=== PATIENT | female | born 1970 | race Caucasian/White ===

== ENCOUNTER 2020-02-08 12:04 | Day surgery (SDC) | payer OTHER ==
[~2020-02-08] VITALS: Ht 175.3 cm; Wt 86.2 kg
[~2020-02-08 12:04] MED LIST: CIPROFLOXACIN500 MG PO; CYCLAFEM1 EAC1 PO; DILAUDID2 MG PO; ERYTHROMYCIN250 M1 PO; FLUOXETINE HCL20 M1 PO; IBUPROFEN800 MG PO; ORTHO NOVUM PO; PAROXETINE HCL20 MG PO; PERCOCET 5-3251 EACH PO; SPIRONOLACTONE25 MG PO
[2020-02-08] MEDS ORDERED: FAMOTIDINE20 MG PO (12:20)
--- NOTE | 2020-02-08 14:10 | NUR ---
02/08/20 1410 Eleanor Ruvalcaba 1404-PATIENT ARRIVED TO PACU ON 2L NC. PATIENT DROWSY DENIES PAIN OR NAUSEA. LAYING LEFT LATERAL. ABDOMEN SOFT. IVF INFUSING. ENCOURAGED TO PASS GAS
--- NOTE | 2020-02-09 11:23 | OR ---
[facility] [address] [place], [place] [address] Signed DATE OF OPERATION: 02/08/2020 SURGEON: Roque Pham MD PREOPERATIVE DIAGNOSES: 1. Colon screening. 2. Family history of colon cancer in paternal grandfather. POSTOPERATIVE DIAGNOSIS: Normal colon. PROCEDURE: Total colonoscopy to right colon with visualization of cecum. ANESTHESIA: Intravenous sedation, fentanyl 100 mcg and Versed 9 mg. INDICATION: This 49-year-old white woman is a patient of DENNY Streeter. She is symptom free as regard to bleeding, diarrhea, or constipation. She is here for screening colonoscopy. She does describe a family history of colon cancer in a paternal grandfather. She understands the risks of bleeding, infection, and perforation related to colonoscopy and wished to proceed. FINDINGS: The prep was good. Complete colonoscopy was undertaken; however, despite every effort, the cecum itself could not be fully intubated. It was visualized, however. There were no signs of polyps, diverticular formation, colitis, or cancer. DESCRIPTION OF PROCEDURE: The patient was brought to the endoscopy suite and placed in lateral decubitus position, given intravenous sedation to the point of slurred speech and nystagmus. Digital rectal examination was normal. An Olympus video colonoscope was passed in the rectum and manipulated throughout the colon. Passage beyond the hepatic flexure was too much problem, passage down the right colon was undertaken requiring abdominal wall stabilization and so forth. Ultimately, the cecum could be visualized. A biopsy forceps was used to stabilize the mucosa hoping to do a " " with the scope. It was simply could not be done despite every effort to do so. The cecum was visualized and considered normal. Scope was withdrawn Electronically Signed By: ROQUE PHAM MD 02/09/20 1123 PATIENT NAME: VLAD BLAKE OPERATIVE REPORT DATE OF : 68 REPORT #: [id number] PHYSICIAN: ROQUE PHAM MD PCP: ROSELINE MENDOZA PA-C REPORT IS CONFIDENTIAL AND NOT TO BE RELEASED WITHOUT AUTHORIZATION [facility] [address] [place] [id number] Signed from that point and examination throughout showed no sign of polyps, diverticular formation, colitis, or cancer. The scope was removed, and the patient was taken to the recovery room in good condition. CONCLUSION DIAGNOSIS: Normal colon. PLAN: Recommend repeat colonoscopy in 5 years considering family history of colon cancer, or sooner if she has symptoms of course. She will return to the ongoing care of Roseline Mendoza. MD GRIS Lomeli/SUSU /[id number] cc: Roseline Mendoza PA-C Copies: ROSELINE MENDOZA PA-C ~ Electronically Signed By: ROQUE PHAM MD 02/09/20 1123 PATIENT NAME: VLAD BLAKE OPERATIVE REPORT DATE OF : 68 REPORT #: [id number] PHYSICIAN: ROQUE PHAM MD PCP: ROSELINE MENDOZA PA-C REPORT IS CONFIDENTIAL AND NOT TO BE RELEASED WITHOUT AUTHORIZATION
== END 2020-02-08 14:55 | disposition home or self-care (01) ==
LOC: OPS 12:04 → DS 12:09 → OPS 13:00
PROVIDERS: Surgery
PROC: 0DJD8ZZ Inspection of Lower Intestinal Tract, Via Natural or Artificial Opening Endoscopic (ICD-10-PCS; principal; 2020-02-08 13:00)
DX: Z12.11 Encounter for screening for malignant neoplasm of colon (principal); Z80.0 Family history of malignant neoplasm of digestive organs
CPT/HCPCS: 99153; G0500; J2250; J3010; J7121

== ENCOUNTER 2020-08-08 08:05 | Day surgery (SDC) | payer OTHER ==
[~2020-08-08] VITALS: Ht 175.3 cm; Wt 88.6 kg
[~2020-08-08 08:05] MED LIST changes: +COD LIVER OIL1 EAC2 PO; +FAMOTIDINE20 MG PO; +ICAPS AREDS2 S1 EACH PO
--- NOTE | 2020-08-08 12:46 | NUR ---
08/08/20 1246 Hiram Heredia MD AT BEDSIDE. AWARE OF BLOOD TINGED DRAINAGE FROM RIGHT NECK SURGICAL SITE. NO NEW ORDERS.
--- NOTE | 2020-08-08 14:19 | NUR ---
PT TAKING SIPS OF WATER AND EATING JELLO. REVIEWING DISCHARGE INSTRUCTIONS WITH PT AND AT BEDSIDE.
--- NOTE | 2020-08-08 15:15 | NUR ---
1450 PT UP TO BATHROOM WITH AND RN HELPING PT. PT REPORTS SMALL AMOUNT OF DIZZINESS. PT REPORTS VOIDING. 1515 ALL QUESTIONS ANSWERED AND VSS. IV REMOVED AND ALL BELONGINGS GIVEN. PAPERWORK GIVEN.
--- NOTE | 2020-08-22 10:03 | OR ---
[facility] [address] [place], [place] [address] Signed DATE OF OPERATION: 08/08/2020 SURGEON: Eze Umana MD PREOPERATIVE DIAGNOSIS: [place] syndrome. POSTOPERATIVE DIAGNOSIS: [place] syndrome. PROCEDURE: Partial hyoidectomy bilaterally with resection or release of stylohyoid ligament. INDICATIONS: This is a 50-year-old female has had symptoms of pain, especially worse with turning her head, talking, swallowing, and point tenderness right at the insertion of the hyoid. CT scan was done, which did not show stylohyoid ligament calcification, length of styloid process was within normal limits. The patient did have sharp pieces of calcifications, which went faintly up into the neck. With the patient failing medical treatment, she did get better for a while with anti-inflammatories only to resume. With the point tenderness and CT scan, the above procedure was felt to be curative. DESCRIPTION OF PROCEDURE: The patient was placed in the supine position, had an orotracheal intubation, placed under general anesthesia. A 5 mL of 1% lidocaine with 1:100,000 epinephrine were injected down to the hyoid bone on the left side and then just under the skin. Two fingerbreadths below the angle of the mandible and a neck crease about 2 cm to 2.5 cm incision was made with a 15 blade, then with a needlepoint cautery and local recurrent down through the fibers of the platysma and then after that it was blunt dissection with two Clair clamps at right angles to each other spreading all the way down to the hyoid bone in the musculotendinous intersections. With gentle pressure from the right side, which then delivered a little better the left greater cornu of the hyoid into the wound, the needle point cautery was used to score right on the hyoid bone and then elevating the periosteum and the tendinous connections off with the caudal dissection tool. Then, an Allis clamp was used to grasp the posterior part of the hyoid and a rongeur was used to separate it from the rest of the body of the hyoid. This was then dissected out with caudal dissection tool going posteriorly and finally amputating it where the stylohyoid ligament was present. This protected the internal laryngeal nerves. Closure was with interrupted sutures two of 4-0 PDS subcutaneously, followed by a running interlocking stitch of 5-0 fast absorbing gut with Steri-Strips and Mastisol applied. Another 5 mL Electronically Signed By: EZE UMANA MD 08/22/20 1003 PATIENT NAME: VLAD BLAKE OPERATIVE REPORT DATE OF : 68 REPORT #: [id number] PHYSICIAN: EZE UMANA MD PCP: LEANDRA MORAN PA-C REPORT IS CONFIDENTIAL AND NOT TO BE RELEASED WITHOUT AUTHORIZATION [address] [address] Signed injected to the right side, same process, same dissection, same greater cornu of the hyoid bone dissected out with releasing the styloid ligament. Estimated blood loss was less than 5 mL. Same closure was done. No drains necessary. The patient was then awakened and sent to the recovery room in good condition. She will be followed up in the clinic. Eze Umana MD [facility] /[id number] Copies: ~ Electronically Signed By: EZE UMANA MD 08/22/20 1003 PATIENT NAME: VLAD BLAKE OPERATIVE REPORT DATE OF : 68 REPORT #: [id number] PHYSICIAN: EZE UMANA MD PCP: LEANDRA MORAN PA-C REPORT IS CONFIDENTIAL AND NOT TO BE RELEASED WITHOUT AUTHORIZATION
== END 2020-08-08 15:15 | disposition home or self-care (01) ==
LOC: OPS 08:05 → DS 08:05 → OPS 09:15 → DS 09:15 → OPS 15:15
PROVIDERS: ATTEND Otolaryngology
DX: M27.8 Other specified diseases of jaws (principal); Z11.59 Encounter for screening for other viral diseases
CPT/HCPCS: 00320; J0131; J1100; J1170; J2001; J2405; J2704; J3010; J7121